=== PATIENT | male | born 1930 | race Caucasian/White ===

== ENCOUNTER 2020-03-12 17:18 | Inpatient (IN) | payer BC, OTHER ==
[2020-03-12 17:31] VITALS: BMI 29.2
[2020-03-12 19:16] LABS: BASO % 0.9 % (0-2.0); EOS % 4.4 % (0-4.5); HEMATOCRIT 48.8 % (35.4-49); HEMOGLOBIN 16.4 GM/dL (11.7-16.9); LYMPH % 21.5 % (8-40); MCH 35.2 pg (25.7-33.7); MCHC 33.7 g/dl (32.0-35.9); MEAN CELL VOLUME 104.6 fl (80-96); MEAN PLT VOLUME 8.1 fl (7.5-11.1); MONO % 9.7 % (3.8-10.2); NEUT % 63.5 % (42.8-82.8); PLATELET COUNT 171 K/MM3 (134-434); RBC 4.66 M/mm3 (4.00-5.60); RDW 13.8 % (11.9-15.9); WHITE BLOOD COUNT 6.3 K/mm3 (4.0-10.0)
[2020-03-12 19:44] LABS: CHLORIDE 102 mmol/L (98-107); POTASSIUM 5.2 mmol/L (3.5-5.1); SODIUM 138 mmol/L (136-145)
[2020-03-12 19:47] LABS: ALBUMIN 3.8 g/dl (3.4-5.0); ANION GAP 5 MMOL/L (8-16); CALCIUM 8.8 mg/dL (8.5-10.1); CO2 31 mmol/L (21-32); GLUCOSE,RANDOM 102 mg/dL (74-106); MAGNESIUM 2.5 mg/dL (1.8-2.4)
[2020-03-12 19:49] LABS: SGPT/ALT 44 U/L (13-61)
[2020-03-12 19:50] LABS: SGOT/AST 57 U/L (15-37)
[2020-03-12 19:52] LABS: ALK PHOS 126 U/L (45-117)
[2020-03-12 19:55] LABS: N-TERMINAL BNP 1109.5 pg/ml (5-450)
[2020-03-13] MEDS ORDERED: FUROSEMIDE 40 MG/4 ML INJECTABLE VIAL IVPUSH ONE ×2 (00:30→14:00)
[2020-03-13] MEDS: TAMSULOSIN HCL 0.4 MG CAP PO SCH ×2 (00:30→09:59)
[2020-03-13] MEDS: RIVAROXABAN 15 MG TABLET PO SCH ×2 (00:30→17:58)
[2020-03-13] MEDS: ATORVASTATIN CA 10 MG TABLET (FP) PO SCH ×2 (00:30→21:58)
[2020-03-13] MEDS: LATANOPROST 0.005% OPHTH SOLN 2.5ML BOTTLE OU SCH ×2 (01:07→21:58)
[2020-03-13] MEDS ORDERED: PNEUMOC 13-VAL CONJ-DIP CRM/PF 0.5 ML DISP.SYRIN IM ONE (10:00)
[2020-03-13] MEDS ORDERED: FUROSEMIDE 40 MG TABLET (FP) PO SCH (10:00)
[2020-03-13 20:50] LABS: CHLORIDE 100 mmol/L (98-107); SODIUM 138 mmol/L (136-145)
[2020-03-13 20:51] LABS: ANION GAP 9 MMOL/L (8-16); CALCIUM 9.1 mg/dL (8.5-10.1); CO2 30 mmol/L (21-32); GLUCOSE,RANDOM 145 mg/dL (74-106)
[2020-03-13 20:55] LABS: CREATININE 1.2 mg/dL (0.55-1.3)
[2020-03-13] MEDS ORDERED: PT OWN MED DRAWER 7, Y5N ONE (22:01)
[2020-03-14] MEDS ORDERED: POLYETHYLENE GLYCOL 3350 119 GM BTL PO ONE (10:03)
[2020-03-14] MEDS: FUROSEMIDE 40 MG/4 ML INJECTABLE VIAL IVPUSH SCH (10:30)
[2020-03-14 11:19] LABS: POTASSIUM 4.6 mmol/L (3.5-5.1)
[2020-03-14 11:21] LABS: BLOOD UREA NITROGEN 16.1 mg/dL (7-18)
[2020-03-14 11:22] LABS: MAGNESIUM 2.2 mg/dL (1.8-2.4)
[2020-03-14 11:29] LABS: N-TERMINAL BNP 1293.5 pg/ml (5-450)
[2020-03-14] MEDS: RIVAROXABAN 15 MG TABLET PO SCH (17:25)
[2020-03-14] MEDS: ATORVASTATIN CA 10 MG TABLET (FP) PO SCH (21:59)
[2020-03-14] MEDS: LATANOPROST 0.005% OPHTH SOLN 2.5ML BOTTLE OU SCH (22:00)
[2020-03-15] MEDS ORDERED: TAMSULOSIN HCL 0.4 MG CAP PO SCH (08:30)
[2020-03-15] MEDS: FUROSEMIDE 40 MG/4 ML INJECTABLE VIAL IVPUSH SCH (10:32)
[2020-03-15 15:06] VITALS: BP 135/74; PULSE 72; TEMP 99
[2020-03-16] MEDS ORDERED: FUROSEMIDE 40 MG TABLET (FP) PO SCH (10:00)
== END 2020-03-15 15:39 | disposition home or self-care (01) | DRG 293 ==
LOC: JER 17:18 → JERBED 18:23 → JICU 23:20 → J4W 03-14 18:40
PROVIDERS: ADMIT Internal Medicine; ATTEND Internal Medicine
DX: I11.0 Hypertensive heart disease with heart failure (principal); R55 Syncope and collapse; I48.91 Unspecified atrial fibrillation; I50.33 Acute on chronic diastolic (congestive) heart failure; N40.0 Benign prostatic hyperplasia without lower urinary tract symptoms; E78.5 Hyperlipidemia, unspecified; R00.1 Bradycardia, unspecified
CPT/HCPCS: 36415; 71045-TC-FY; 80048; 80053; 82550; 82962; 83735; 83880; 84484; 85025; 90670; 93005; 93010; 93306-TC; 99285-25; C9803; U0003